=== PATIENT | female | born 1970 | race Caucasian/White ===

== ENCOUNTER 2016-11-05 19:51 | Emergency (ER) | payer MEDICAID ==
[~2016-11-05 19:51] MED LIST: FLO4 PO; MOTRIN800 MG PO
[2016-11-05 21:56] LABS: microscopic required? NO
[2016-11-05 22:12] LABS: BASOPHIL % 0.7 % (0-2); PLATELET COUNT 212 x10^3mcL (130-400); RED CELL DISTRIBUTION WIDTH 13.3 % (11.5-14.5)
[2016-11-05 22:19] LABS: UA SPECIFIC GRAVITY 1.025 (1.005-1.035); urine erythrocyte NEGATIVE (NEGATIVE)
[2016-11-05 22:44] LABS: ALBUMIN 3.4 g/dL (3.4-5.0); ALKALINE PHOSPHATASE 80 U/L (46-116); ALT/SGPT 21 U/L (14-59); AMYLASE 99 U/L (25-115); AST/SGOT 13 U/L (15-37); BILIRUBIN TOTAL 0.5 mg/dL (0.20-1.00); CALCIUM 8.6 mg/dL (8.5-10.1); CARBON DIOXIDE 27.3 mmol/L (21-32); CHLORIDE SERUM 108 mmol/L (98-107); CREATININE SERUM 0.9 mg/dL (0.6-1.0); GFR1 > 60 mL/min; GLUCOSE SERUM 105 mg/dL (74-106); LIPASE 177 IU/L (73-393); POTASSIUM SERUM 3.6 mmol/L (3.5-5.1); SODIUM SERUM 143 mmol/L (136-145); TOTAL PROTEIN, SERUM 6.7 g/dL (6.4-8.2)
[2016-11-05 23:40] VITALS: BP 138/83
== END 2016-11-05 23:40 | disposition home or self-care (01) ==
LOC: ED 19:51
PROVIDERS: Emergency Medicine
DX: M54.5 Low back pain (principal); Z87.442 Personal history of urinary calculi
CPT/HCPCS: J2270; Q0092; Q0162

== ENCOUNTER 2017-02-02 16:09 | Emergency (ER) | payer MEDICAID ==
[2017-02-02 18:02] LABS: microscopic required? YES; urine erythrocyte NEGATIVE (NEGATIVE)
[2017-02-02 18:04] LABS: PLATELET COUNT 217 x10^3mcL (130-400); RED CELL DISTRIBUTION WIDTH 13.1 % (11.5-14.5)
[2017-02-02 18:17] LABS: CALCIUM 8.4 mg/dL (8.5-10.1); CARBON DIOXIDE 27.2 mmol/L (21-32); CHLORIDE SERUM 106 mmol/L (98-107); CREATININE SERUM 0.9 mg/dL (0.6-1.0); GFR1 > 60 mL/min; GLUCOSE SERUM 84 mg/dL (74-106); POTASSIUM SERUM 3.4 mmol/L (3.5-5.1); SODIUM SERUM 140 mmol/L (136-145)
[2017-02-02 18:22] LABS: ALBUMIN 3.7 g/dL (3.4-5.0); ALKALINE PHOSPHATASE 94 U/L (46-116); ALT/SGPT 25 U/L (14-59); AST/SGOT 17 U/L (15-37); LIPASE 179 IU/L (73-393); TOTAL PROTEIN, SERUM 7.2 g/dL (6.4-8.2)
[2017-02-02 18:41] LABS: BAND NEUTROPHIL 1 % (0-10); BASOPHIL 1 % (0-2); MONOCYTE 7 % (0-7); SEGMENTED NEUTROPHILS 62 % (37-75); rbc morphology (normal/abnorm) NORMAL (NORMAL)
[2017-02-02 19:10] VITALS: BP 137/92
== END 2017-02-02 19:10 | disposition home or self-care (01) ==
LOC: ED 16:09
PROVIDERS: Emergency Medicine
DX: N39.0 Urinary tract infection, site not specified (principal); Z87.442 Personal history of urinary calculi
CPT/HCPCS: 36415; J1885; Q0162

== ENCOUNTER 2017-03-02 21:03 | Emergency (ER) | payer MEDICAID ==
[2017-03-02 22:20] VITALS: BP 137/98
== END 2017-03-02 22:20 | disposition home or self-care (01) ==
LOC: ED 21:03
DX: R10.13 Epigastric pain (principal); Z90.49 Acquired absence of other specified parts of digestive tract

== ENCOUNTER 2017-10-09 16:41 | Emergency (ER) | payer MEDICAID ==
[~2017-10-09] VITALS: Ht 170.2 cm; Wt 104.3 kg
[2017-10-09 17:32] LABS: microscopic required? NO
[2017-10-09 17:38] LABS: UA SPECIFIC GRAVITY 1.025 (1.005-1.035); urine erythrocyte NEGATIVE (NEGATIVE)
[2017-10-09 17:46] LABS: BASOPHIL % 0.5 % (0-2); PLATELET COUNT 214 x10^3mcL (130-400); RED CELL DISTRIBUTION WIDTH 13.4 % (11.5-14.5)
[2017-10-09 18:01] LABS: CALCIUM 8.3 mg/dL (8.5-10.1); CARBON DIOXIDE 24.6 mmol/L (21-32); CHLORIDE SERUM 108 mmol/L (98-107); CREATININE SERUM 0.9 mg/dL (0.6-1.0); GFR1 > 60 mL/min; GLUCOSE SERUM 142 mg/dL (74-106); POTASSIUM SERUM 3.5 mmol/L (3.5-5.1); SODIUM SERUM 142 mmol/L (136-145)
[2017-10-09 18:06] LABS: ALKALINE PHOSPHATASE 92 U/L (46-116); ALT/SGPT 26 U/L (14-59); AST/SGOT 14 U/L (15-37); BILIRUBIN TOTAL 0.51 mg/dL (0.20-1.00); TOTAL PROTEIN, SERUM 6.4 g/dL (6.4-8.2)
[2017-10-09 18:09] LABS: ALBUMIN 3.1 g/dL (3.4-5.0)
[2017-10-09 19:15] VITALS: BP 145/84
== END 2017-10-09 19:15 | disposition home or self-care (01) ==
LOC: ED 16:41
PROVIDERS: Emergency Medicine
DX: M62.830 Muscle spasm of back (principal); R03.0 Elevated blood-pressure reading, without diagnosis of hypertension; R10.9 Unspecified abdominal pain; Z87.442 Personal history of urinary calculi
CPT/HCPCS: 20552; J1885; J2001; J7030

== ENCOUNTER 2018-02-06 20:19 | Emergency (ER) | payer MEDICAID ==
[~2018-02-06] VITALS: Ht 170.2 cm; Wt 107.0 kg
[2018-02-06 20:48] VITALS: Ht 170.2 cm; Wt 107.0 kg
[2018-02-06 21:43] LABS: BASOPHIL % 0.7 % (0-2); PLATELET COUNT 233 x10^3mcL (130-400)
[2018-02-06 22:24] LABS: CALCIUM 7.9 mg/dL (8.5-10.1); CARBON DIOXIDE 25.4 mmol/L (21-32); CHLORIDE SERUM 108 mmol/L (98-107); CREATININE SERUM 0.8 mg/dL (0.6-1.0); GFR1 > 60 mL/min; GLUCOSE SERUM 107 mg/dL (74-106); POTASSIUM SERUM 3.3 mmol/L (3.5-5.1); SODIUM SERUM 143 mmol/L (136-145)
[2018-02-06 22:28] LABS: ALKALINE PHOSPHATASE 104 U/L (46-116); ALT/SGPT 27 U/L (14-59); AST/SGOT 16 U/L (15-37); BILIRUBIN TOTAL 0.7 mg/dL (0.20-1.00); TOTAL PROTEIN, SERUM 6.7 g/dL (6.4-8.2)
[2018-02-06 22:29] LABS: UA SPECIFIC GRAVITY >=1.030 (1.005-1.035); microscopic required? YES; urine erythrocyte TRACE (NEGATIVE)
[2018-02-06 22:30] LABS: ALBUMIN 3.3 g/dL (3.4-5.0)
[2018-02-07 01:20] VITALS: BP 135/79
== END 2018-02-07 01:20 | disposition home or self-care (01) ==
LOC: ED 20:19
PROVIDERS: Emergency Medicine
DX: N23 Unspecified renal colic (principal); I10 Essential (primary) hypertension
CPT/HCPCS: 36415; J2270; Q0092

== ENCOUNTER 2018-02-11 16:23 | Inpatient (IN) | payer MEDICAID ==
[~2018-02-11] VITALS: Ht 170.2 cm; Wt 106.4 kg
[2018-02-11 16:26] VITALS: Ht 170.2 cm; Wt 106.4 kg
[2018-02-11 17:24] LABS: BASOPHIL % 0.6 % (0-2); PLATELET COUNT 212 x10^3mcL (130-400); RED CELL DISTRIBUTION WIDTH 13.7 % (11.5-14.5)
[2018-02-11 17:43] LABS: CALCIUM 8.5 mg/dL (8.5-10.1); CARBON DIOXIDE 24.1 mmol/L (21-32); CHLORIDE SERUM 108 mmol/L (98-107); GFR1 > 60 mL/min; GLUCOSE SERUM 134 mg/dL (74-106); POTASSIUM SERUM 3.3 mmol/L (3.5-5.1); SODIUM SERUM 140 mmol/L (136-145)
[2018-02-11 17:48] LABS: ALKALINE PHOSPHATASE 86 U/L (46-116); ALT/SGPT 26 U/L (14-59); AMYLASE 65 U/L (25-115); AST/SGOT 14 U/L (15-37); BILIRUBIN TOTAL 0.83 mg/dL (0.20-1.00); LIPASE 116 IU/L (73-393); TOTAL PROTEIN, SERUM 6.4 g/dL (6.4-8.2)
[2018-02-11 17:52] LABS: ALBUMIN 3.3 g/dL (3.4-5.0)
[2018-02-11 19:45] LABS: CHOLESTEROL/HDL RATIO 4.2; MAGNESIUM 1.9 mg/dL (1.8-2.4); PHOSPHOROUS 3.9 mg/dL (2.5-4.9)
[2018-02-11 19:52] LABS: T3 TOTAL 1.26 ng/mL
[2018-02-11 20:12] VITALS: BP 150/84
[2018-02-11 20:37] LABS: FREE T4 1.29 ng/dL (0.76-1.46); FREE THYROXINE INDEX 3.2 ug/dL (1.4-4.5); T4(THYROXINE) 9.2 ug/dL (4.7-13.3)
[2018-02-11 21:48] VITALS: BP 126/72
[2018-02-12 01:41] LABS: microscopic required? NO
[2018-02-12 02:07] LABS: urine erythrocyte NEGATIVE (NEGATIVE)
[2018-02-12 06:10] VITALS: BP 144/82
[2018-02-12 09:35] VITALS: BP 133/77
[2018-02-12 18:28] VITALS: BP 125/70
[2018-02-12 20:41] VITALS: BP 134/76
[2018-02-13 05:18] VITALS: BP 134/75
[2018-02-13 06:13] LABS: BASOPHIL % 0.8 % (0-2); PLATELET COUNT 218 x10^3mcL (130-400); RED CELL DISTRIBUTION WIDTH 13.6 % (11.5-14.5)
[2018-02-13 06:17] LABS: CALCIUM 8.5 mg/dL (8.5-10.1); CARBON DIOXIDE 24.3 mmol/L (21-32); CREATININE SERUM 1.1 mg/dL (0.6-1.0)
[2018-02-13 09:15] VITALS: BP 140/74
[2018-02-13 17:27] VITALS: BP 146/82
[2018-02-13 20:48] VITALS: BP 134/74
[2018-02-14 05:35] VITALS: BP 141/79
[2018-02-14 06:19] LABS: BASOPHIL % 0.4 % (0-2); PLATELET COUNT 206 x10^3mcL (130-400)
[2018-02-14 06:39] LABS: CALCIUM 8.2 mg/dL (8.5-10.1); CARBON DIOXIDE 23.8 mmol/L (21-32); CHLORIDE SERUM 107 mmol/L (98-107); CREATININE SERUM 0.7 mg/dL (0.6-1.0); GFR1 > 60 mL/min; GLUCOSE SERUM 92 mg/dL (74-106); POTASSIUM SERUM 3.5 mmol/L (3.5-5.1); SODIUM SERUM 141 mmol/L (136-145)
[2018-02-14 09:37] VITALS: BP 136/70
[2018-02-14 10:18] VITALS: BP 136/70
== END 2018-02-14 11:07 | disposition home or self-care (01) | DRG 234 ==
LOC: ED 16:23 → MU 19:02
PROVIDERS: Family Medicine; Specialist; Surgery
PROC: 0DTJ4ZZ Resection of Appendix, Percutaneous Endoscopic Approach (ICD-10-PCS; principal; 2018-02-12 13:00)
DX: K35.80 Unspecified acute appendicitis (principal); E44.1 Mild protein-calorie malnutrition; E87.6 Hypokalemia; N20.0 Calculus of kidney; I10 Essential (primary) hypertension; E78.5 Hyperlipidemia, unspecified; E66.9 Obesity, unspecified; Z68.36 Body mass index [BMI] 36.0-36.9, adult; Z87.442 Personal history of urinary calculi
CPT/HCPCS: 83880; 84439; 94150; J0330; J0694; J1170; J1885; J2250; J2405; J2704; J2710; J3010; J3490; J7030; J7120; J8597; Q0092; Q0162

== ENCOUNTER 2018-02-26 10:17 | Emergency (ER) | payer MEDICAID ==
[~2018-02-26] VITALS: Ht 170.2 cm; Wt 61.2 kg
[2018-02-26 11:31] LABS: BASOPHIL % 0.4 % (0-2); PLATELET COUNT 220 x10^3mcL (130-400); RED CELL DISTRIBUTION WIDTH 13.7 % (11.5-14.5)
[2018-02-26 12:13] LABS: UA SPECIFIC GRAVITY <=1.005 (1.005-1.035); microscopic required? YES; urine erythrocyte 1+ (NEGATIVE)
[2018-02-26 12:28] LABS: ALBUMIN 3.2 g/dL (3.4-5.0); ALKALINE PHOSPHATASE 82 U/L (46-116); ALT/SGPT 27 U/L (14-59); AST/SGOT 14 U/L (15-37); BILIRUBIN TOTAL 1.31 mg/dL (0.20-1.00); CALCIUM 8.6 mg/dL (8.5-10.1); CARBON DIOXIDE 23.6 mmol/L (21-32); CHLORIDE SERUM 107 mmol/L (98-107); CREATININE SERUM 0.8 mg/dL (0.6-1.0); GFR1 > 60 mL/min; GLUCOSE SERUM 160 mg/dL (74-106); LIPASE 134 IU/L (73-393); POTASSIUM SERUM 3.2 mmol/L (3.5-5.1); SODIUM SERUM 140 mmol/L (136-145); TOTAL PROTEIN, SERUM 6.7 g/dL (6.4-8.2)
[2018-02-26 15:15] VITALS: BP 137/76
== END 2018-02-26 15:15 | disposition home or self-care (01) ==
LOC: ED 10:17
PROVIDERS: Emergency Medicine
DX: G89.18 Other acute postprocedural pain (principal); E87.6 Hypokalemia; I10 Essential (primary) hypertension; Z90.49 Acquired absence of other specified parts of digestive tract
CPT/HCPCS: J3010; J3480; Q9967

== ENCOUNTER 2019-02-01 15:23 | Emergency (ER) | payer MEDICAID ==
[~2019-02-01] VITALS: Ht 170.2 cm; Wt 105.7 kg
[2019-02-01 15:27] VITALS: Ht 170.2 cm; Wt 105.7 kg
[2019-02-01 16:53] LABS: microscopic required? NO
[2019-02-01 17:05] LABS: UA SPECIFIC GRAVITY 1.025 (1.005-1.035); urine erythrocyte NEGATIVE (NEGATIVE)
[2019-02-01 17:06] LABS: BASOPHIL % 0.6 % (0-2); PLATELET COUNT 219 x10^3mcL (130-400); RED CELL DISTRIBUTION WIDTH 13.7 % (11.5-14.5)
[2019-02-01 17:17] LABS: CALCIUM 8.9 mg/dL (8.5-10.1); CARBON DIOXIDE 25.5 mmol/L (21-32); CHLORIDE SERUM 109 mmol/L (98-107); CREATININE SERUM 0.9 mg/dL (0.6-1.0); GFR1 > 60 mL/min; GLUCOSE SERUM 95 mg/dL (74-106); POTASSIUM SERUM 3.6 mmol/L (3.5-5.1); SODIUM SERUM 143 mmol/L (136-145)
[2019-02-01 17:22] LABS: ALKALINE PHOSPHATASE 96 U/L (46-116); ALT/SGPT 36 U/L (14-59); AST/SGOT 14 U/L (15-37); BILIRUBIN TOTAL 0.6 mg/dL (0.20-1.00); TOTAL PROTEIN, SERUM 6.7 g/dL (6.4-8.2)
[2019-02-01 17:23] LABS: ALBUMIN 3.3 g/dL (3.4-5.0)
[2019-02-01 18:09] VITALS: BP 155/94
== END 2019-02-01 18:49 | disposition home or self-care (01) ==
LOC: ED 15:23
PROVIDERS: Emergency Medicine
DX: M54.5 Low back pain (principal); I10 Essential (primary) hypertension; Z90.49 Acquired absence of other specified parts of digestive tract; Z98.890 Other specified postprocedural states; Z87.442 Personal history of urinary calculi
CPT/HCPCS: J1885

== ENCOUNTER 2019-04-09 18:19 | Emergency (ER) | payer MEDICAID ==
[~2019-04-09] VITALS: Ht 170.2 cm; Wt 105.2 kg
[2019-04-09 18:25] VITALS: Ht 170.2 cm; Wt 105.2 kg
[2019-04-09 19:03] LABS: BASOPHIL % 1.4 % (0-2); PLATELET COUNT 272 x10^3mcL (130-400); RED CELL DISTRIBUTION WIDTH 13.5 % (11.5-14.5)
[2019-04-09 19:04] LABS: CALCIUM 8.4 mg/dL (8.5-10.1); CARBON DIOXIDE 26.3 mmol/L (21-32); CHLORIDE SERUM 106 mmol/L (98-107); CREATININE SERUM 0.9 mg/dL (0.6-1.0); GFR1 > 60 mL/min; GLUCOSE SERUM 102 mg/dL (74-106); POTASSIUM SERUM 3.5 mmol/L (3.5-5.1); SODIUM SERUM 144 mmol/L (136-145)
[2019-04-09 19:11] LABS: ALBUMIN 3.4 g/dL (3.4-5.0); ALKALINE PHOSPHATASE 127 U/L (46-116); ALT/SGPT 43 U/L (14-59); AST/SGOT 17 U/L (15-37); BILIRUBIN TOTAL 0.8 mg/dL (0.20-1.00); TOTAL PROTEIN, SERUM 7.2 g/dL (6.4-8.2)
[2019-04-09 21:14] LABS: UA SPECIFIC GRAVITY 1.025 (1.005-1.035); microscopic required? YES; urine erythrocyte 2+ (NEGATIVE)
[2019-04-09 23:16] VITALS: BP 124/87
== END 2019-04-09 23:16 | disposition home or self-care (01) ==
LOC: ED 18:19
PROVIDERS: Emergency Medicine
DX: R10.813 Right lower quadrant abdominal tenderness (principal); R31.29 Other microscopic hematuria; I10 Essential (primary) hypertension; Z90.49 Acquired absence of other specified parts of digestive tract; Z98.890 Other specified postprocedural states; Z87.442 Personal history of urinary calculi; Z90.89 Acquired absence of other organs
CPT/HCPCS: 36415; J1885; Q0092

== ENCOUNTER 2019-09-04 20:04 | Emergency (ER) | payer MEDICAID ==
[~2019-09-04] VITALS: Ht 170.2 cm; Wt 113.1 kg
[2019-09-04 21:19] LABS: BASOPHIL % 0.6 % (0-2); PLATELET COUNT 232 x10^3mcL (130-400)
[2019-09-04 21:26] LABS: CALCIUM 8.8 mg/dL (8.5-10.1); CARBON DIOXIDE 30.7 mmol/L (21-32); CHLORIDE SERUM 105 mmol/L (98-107); CREATININE SERUM 0.8 mg/dL (0.6-1.0); GFR1 > 60 mL/min; GLUCOSE SERUM 98 mg/dL (74-106); POTASSIUM SERUM 3.8 mmol/L (3.5-5.1); SODIUM SERUM 140 mmol/L (136-145)
[2019-09-04 21:31] LABS: ALKALINE PHOSPHATASE 114 U/L (46-116); ALT/SGPT 78 U/L (14-59); AST/SGOT 38 U/L (15-37); BILIRUBIN TOTAL 0.75 mg/dL (0.20-1.00); LIPASE 130 IU/L (73-393); TOTAL PROTEIN, SERUM 6.5 g/dL (6.4-8.2)
[2019-09-04 21:34] LABS: ALBUMIN 3.1 g/dL (3.4-5.0)
[2019-09-04 22:38] LABS: UA SPECIFIC GRAVITY 1.015 (1.005-1.035); microscopic required? YES; urine erythrocyte TRACE (NEGATIVE)
[2019-09-05 04:58] VITALS: BP 139/76
== END 2019-09-05 04:58 | disposition home or self-care (01) ==
LOC: ED 20:04
PROVIDERS: Emergency Medicine
DX: N20.0 Calculus of kidney (principal); I10 Essential (primary) hypertension; Z90.49 Acquired absence of other specified parts of digestive tract; Z98.890 Other specified postprocedural states
CPT/HCPCS: J1885; J2270; J2405; J7030